=== PATIENT | female | born 1995 | race Caucasian/White ===

== ENCOUNTER 2020-02-15 14:15 | Day surgery (SDC) | payer SELFPAY ==
[2020-02-15 14:49] VITALS: BP 120/70; TEMP 98.3; BMI 26.9
[2020-02-15] MEDS ORDERED: hydrALAZINE 20 MG/ML VIAL SLOW IVP PRN (14:51)
--- NOTE | 2020-02-15 15:00 | PDOC.FPROB ---
FMR OB H&P: HPI - History of Present Illness Chief Complaint: Decreased FM, cramping Indentification: 24yo G1 at 33.6wks History of Present Illness: 24yo G1 at 33.6wks presents for decreased FM and cramping. Cramping has been intermittent for last 2 days, some irregular contractions last night. She has tried kick counts and drinking something sweet prior to coming in for the decreased movement. Denies VB/discharge, LOF, dysuria, fever. Now endorses FM. Reports before the cramping she had intercourse. Primary Care Physician: Dr Lacey FMR OB H&P: Current - Care : 1 Para: 0 Gestational age: 33.6wks Course/Complications: Likely Chlamydia positive (tx'ed with Azithro) - OB Labs Blood type: B RH: positive Antibody Screen: negative HIV: negative RPR: negative HepBsAg: negative Rubella: immune - First Trimester Ultrasound First trimester: Sickle Cell neg FMR OB H&P: History - Past Medical History PMH: Endometriosis - Surgical History Sx History: Exploratory laparotomy - Social History Social History: Denies Tobacco, alcohol and drug use. - Family History Family History: Noncontributory FMR OB H&P: Medications - Current Home Medications: Medication Instructions Recorded Confirmed Type Pnv No.95/Ferrous Fum/Folic AC 1 tab PO DAILY 02/15/20 02/15/20 History [ Tablet] Allergies/Adverse Reactions: Allergies Allergy/AdvReac Type Severity Reaction Status Date / Time Latex, Natural Rubber Allergy Verified 02/15/20 14:44 FMR OB H&P: ROS - Review of Systems General: denies: fever/chills, fatigue Eyes: denies: eye pain, vision changes, double vision ENT: denies: nasal congestion, sore throat Cardiovascular: denies: chest pain, edema Respiratory: denies: cough, congestion, shortness of breath Integumentary: denies: itching, rash FMR OB H&P: Vital Signs - Maternal Vital signs: Vital Signs - First Documented Temp Pulse Resp BP 98.3 F 80 18 120/70 02/15/20 14:31 02/15/20 14:31 02/15/20 14:31 02/15/20 14:31 - Heart Tones Baseline: 130 Variability: moderate Acceleration: present Deceleration: absent Category: category 1 [place] contractions every: None FMR OB H&P: Physical Exam - Physical Exam General: NAD, awake, alert and oriented HEENT: normocephalic and atraumatic, conjunctiva clear, no scleral icterus, grossly normal hearing Neck: supple, trachea midline Heart: RRR, no murmurs/rubs/gallops, no edema General: CTAB, no respiratory distress, good air movement, no rales/rhonchi, no wheezing, no retractions Abdomen: soft, gravid, non-tender Musculoskeletal: pulses present, no misalignment/asymmetry, no atrophy Neurological: no focal deficit Skin: no rash, good tugor Lymphatic: no unusual bruising or bleeding Psychiatric: intact recent and remote memory, good judgement and insight, normal mood and affect FMR OB H&P: A/P Disposition: 24yo G1 at 33.6wks Decreased FM - Now feeling movement. NST reactive and BPP 8/8. Not devaughn. Has follow up with Dr Lacey on 02/17, we let him know she was here. Discussion: Date/Time: 02/15/20 9140 This H&P was discussed with Dr. Sesay who agrees with the above documentation and plan. Addendum - Attending - Attending Attestation Date/Time: 02/15/20 9760 I personally evaluated the patient and discussed the management with Dr. Marrufo. I agree with the History, Examination, Assessment and Plan documented above.
--- NOTE | 2020-02-15 16:35 | ULT ---
NONSTRESS BIOPHYSICAL PROFILE: HISTORY: Decreased movement Comparison: None TECHNIQUE: Nonstress biophysical profile was performed FINDINGS: Single intrauterine gestation heart tones: 173 bpm position: Vertex Placenta: Maternal left Cervix is not appreciated Amniotic fluid index: 10.3 cm Nonstress biophysical profile: tone 2 breathing 2 movements 2 Amniotic fluid 2 Total score 8 out of 8 biometry: BPD 8.19 cm 32 weeks 6 days Head circumference 29.99 cm 33 weeks 2 days Abdominal circumference 28.90 cm, 32 weeks 6 days Femur length 6.29 cm, 32 weeks 4 days Average age by sonography is 32 weeks 5 days. Estimated weight is 2061 g +/- 3 105 g IMPRESSION: 1. Single living gestation with heart tones. 2. Average age by sonography is 32 weeks 5 days. Estimated weight is 2061 g +/- 5 g 3. Nonstress biophysical profile score is 8 out of 8 Transcribed Date/Time: 02/15/2020 4:54 PM
== END 2020-02-15 16:00 | disposition home health service (06) ==
LOC: L&D/OP 14:15
PROVIDERS: ATTEND Obstetrics & Gynecology
DX: O36.8130 Decreased fetal movements, third trimester, not applicable or unspecified (principal); O99.891 Other specified diseases and conditions complicating pregnancy; R10.9 Unspecified abdominal pain; Z3A.33 33 weeks gestation of pregnancy; Z91.040 Latex allergy status; Z91.048 Other nonmedicinal substance allergy status
CPT/HCPCS: 59025; 76819; 99282

== ENCOUNTER 2020-03-22 08:42 | Inpatient (IN) | payer OTHER ==
[2020-03-22] MEDS: Lactated Ringer's 1,000 ML IV SCH ×2 (09:00→09:59)
[2020-03-22] MEDS ORDERED: Lidocaine 1% (PF) 30 ML VIAL SC PRN (09:13)
[2020-03-22] MEDS ORDERED: Meperidine HCl/PF 25 MG/ML VIAL IM/IV PRN (09:13)
[2020-03-22] MEDS ORDERED: hydrALAZINE 20 MG/ML VIAL SLOW IVP PRN ×2 (09:13→14:56)
[2020-03-22] MEDS ORDERED: NS w/ Oxytocin 30 units 500 ML IV PRN (09:13)
[2020-03-22] MEDS ORDERED: Promethazine HCl 25 MG/ML VIAL IM PRN ×2 (09:13→10:32)
[2020-03-22] MEDS ORDERED: Ibuprofen 800 MG TAB PO PRN (09:13)
[2020-03-22] MEDS ORDERED: Butorphanol Tartrate 1 MG/ML VIAL SLOW IVP PRN (09:13)
[2020-03-22] MEDS ORDERED: HYDROcodone/Acetaminophen 5/325 mg Tablet PO PRN ×4 (09:13→14:56)
[2020-03-22] MEDS ORDERED: Ondansetron PF 4 MG/2 ML Vial IVP PRN ×3 (09:13→14:56)
[2020-03-22] MEDS ORDERED: Lactated Ringer's 1,000 ML IV SCH (09:15)
[2020-03-22 09:25] VITALS: BMI 27.8
[2020-03-22] MEDS ORDERED: Fentanyl 4 mcg/Bup 0.1% Cadd 100 ML ONE (09:29)
[2020-03-22 09:34] LABS: Hemoglobin 11.4 g/dL (12.0-16.0); Mean Corpuscular HGB CONC 32.9 g/dL (32.0-36.0); Mean Corpuscular Hemoglobin 28.8 pg (27.0-31.0); Mean Corpuscular Volume 87.4 fL (78.0-98.0); Mean Platelet Volume 8.8 fL (7.4-10.4); Platelet Count 273 thou/uL (130-400); RBC Distribution Width 12.9 % (11.5-14.5); Red Blood Cell (RBC) Count 3.95 mill/uL (4.20-5.40); White Blood Cell (WBC) Count 14.3 thou/uL (4.8-10.8)
[2020-03-22 10:15] LABS: Syphilis Antibody Nonreactive (Nonreactive); Syphilis Antibody Index 0.03 S/CO (<1.00 Non-Reactive)
[2020-03-22 10:16] LABS: HBSAg Index 0.21 S/CO (0-0.99); Hep B Surf Ag Non-Reactive S/CO (NonReactive)
[2020-03-22] MEDS ORDERED: Naloxone HCl 0.4 mg/ml Vial IVP PRN ×2 (10:32)
[2020-03-22] MEDS ORDERED: Lactated Ringer's 500 ML IV PRN (10:32)
[2020-03-22] MEDS ORDERED: ePHEDrine 50 MG/ML VIAL SLOW IVP PRN (10:32)
[2020-03-22] MEDS ORDERED: diphenhydrAMINE 50 MG/ML VIAL IVP PRN (10:32)
[2020-03-22] MEDS ORDERED: Acetaminophen 325 MG TAB PO PRN ×2 (10:32→14:57)
[2020-03-22] MEDS ORDERED: Communication Order-Pharmacy FS SCH (10:45)
[2020-03-22] MEDS ORDERED: Fentanyl 4 mcg/Bupivacaine 0.1% Cassette 100 ML EPIDURAL SCH (10:45)
[2020-03-22] MEDS ORDERED: Lidocaine 2% PF 5 ML VIAL ONE (12:38)
[2020-03-22] MEDS ORDERED: Bupivacaine HCl 0.25%/Epi 0.0005/PF 10 ML VIAL FS ONE (12:38)
[2020-03-22 13:14] LABS: SARS-CoV-2 MS2 Positive; SARS-CoV-2 N Gene Negative; SARS-CoV-2 S Gene Negative; SARS-CoV-2 by NAA Not Detected (NotDetected); SARS-CoV-2 orf1ab Negative
[2020-03-22] MEDS ORDERED: Misoprostol 200 MCG TAB VAG PRN (14:56)
[2020-03-22] MEDS ORDERED: Preparation H Ointment 28 GM TUBE PR PRN (14:56)
[2020-03-22] MEDS ORDERED: Benzocaine-Menthol 82.5 ML CAN TOP PRN (14:56)
[2020-03-22] MEDS ORDERED: Adacel (T-DAP) 0.5 ML SYRINGE IM ONE (14:56)
[2020-03-22] MEDS ORDERED: Milk Of Magnesia 30 ML UDCUP PO PRN (14:56)
[2020-03-22] MEDS ORDERED: Lanolin Ointment 7 GM TUBE TOP PRN (14:56)
[2020-03-22] MEDS ORDERED: Bisacodyl 10 MG SUPP PR PRN (14:56)
[2020-03-22] MEDS ORDERED: Zolpidem Tartrate 5 MG TAB PO PRN (14:56)
[2020-03-22] MEDS ORDERED: diphenhydrAMINE 25 MG CAP PO PRN (14:56)
[2020-03-22] MEDS ORDERED: NS / Oxytocin 40 units/1000ml 1,000 ML IV SCH (15:00)
[2020-03-22] MEDS: Ferrous Sulfate 325 MG TAB PO SCH (17:12)
[2020-03-22] MEDS: Docusate Calcium (SURFAK) 240 MG CAP PO SCH (20:11)
[2020-03-22] MEDS: Ibuprofen 800 MG TAB PO SCH (20:12)
[2020-03-23] MEDS: Ibuprofen 800 MG TAB PO SCH ×3 (05:03→21:54)
[2020-03-23] MEDS: Ferrous Sulfate 325 MG TAB PO SCH ×2 (08:16→16:20)
[2020-03-23] MEDS: Prenatal Vitamin 1 TAB PO SCH (08:16)
[2020-03-23] MEDS: Docusate Calcium (SURFAK) 240 MG CAP PO SCH ×2 (08:16→21:53)
[2020-03-23 20:16] VITALS: TEMP 97.8
[2020-03-24] MEDS: Ibuprofen 800 MG TAB PO SCH (05:16)
[2020-03-24 08:06] VITALS: BP 97/54
[2020-03-24] MEDS: Prenatal Vitamin 1 TAB PO SCH (09:06)
[2020-03-24] MEDS: Docusate Calcium (SURFAK) 240 MG CAP PO SCH (09:07)
[2020-03-24] MEDS: Ferrous Sulfate 325 MG TAB PO SCH (09:07)
== END 2020-03-24 11:21 | disposition home or self-care (01) | DRG 807 ==
LOC: L&D/OP 08:42 → L&D 15:06 → 3SW 17:26
PROVIDERS: ADMIT Obstetrics & Gynecology; ATTEND Obstetrics & Gynecology
PROC: 10E0XZZ Delivery of Products of Conception, External Approach (ICD-10-PCS; principal; 2020-03-22)
DX: O70.0 First degree perineal laceration during delivery (principal); Z37.0 Single live birth; Z3A.39 39 weeks gestation of pregnancy
CPT/HCPCS: 36415; 51702; 85027; 86780; 86850; 86900; 86901; 87340; 87635; 90715; 99285; J2001; J2405; J2590; J7030; U0003

== ENCOUNTER 2021-05-11 16:24 | Emergency (ER) | payer MEDICAID, OTHER ==
[2021-05-11] MEDS ORDERED: Dexamethasone 10 MG/ML VIAL ONE (18:51)
[2021-05-12 01:00] LABS: SARS-CoV-2 PCR by NAA Not Detected (NotDetected)
== END 2021-05-11 19:00 | disposition home or self-care (01) ==
LOC: ERS 16:24
DX: R05.9 Cough, unspecified (principal); Z20.822 Contact with and (suspected) exposure to COVID-19; Z79.899 Other long term (current) drug therapy; F17.210 Nicotine dependence, cigarettes, uncomplicated; F17.290 Nicotine dependence, other tobacco product, uncomplicated
CPT/HCPCS: 87081; 87430; 99283; J1100; U0003; U0005

== ENCOUNTER 2023-04-05 11:20 | Emergency (ER) | payer OTHER, SELFPAY ==
[2023-04-05] MEDS ORDERED: Ketorolac Tromethamine 30 MG (1 mL) VIAL ONE (12:12)
[2023-04-05 12:20] LABS: #Eosinphils 0.6 thou/uL (0.0-0.7); #Monocytes 0.4 thou/uL (0.11-0.59); #Neutrophils 4.4 thou/uL (1.40-6.50); %Basophils 0.5 % (0.0-1.0); %Eosinophils 8.2 % (0.0-10.0); %Lymphocytes 26.9 % (21.0-51.0); %Monocytes 5.5 % (0.0-10.0); %Neutrophils 58.8 % (42.0-75.0); Hematocrit 40.9 % (36.0-47.0); Hemoglobin 13.7 g/dL (12.0-16.0); Mean Corpuscular HGB CONC 33.5 g/dL (32.0-36.0); Mean Corpuscular Hemoglobin 31.3 pg (27.0-31.0); Mean Corpuscular Volume 93.4 fl (78.0-98.0); Mean Platelet Volume 9.3 fL (7.4-10.4); Platelet Count 320 10x3/uL (130-400); RBC Distribution Width 12.2 % (11.5-14.5); Red Blood Cell (RBC) Count 4.38 mill/uL (4.20-5.40); White Blood Cell (WBC) Count 7.5 10x3/uL (4.8-10.8)
[2023-04-05 12:35] LABS: BHCG - Serum Negative (NEGATIVE); Pregs Control Background? CLEAR/WHITE (CLR/WHITE); Pregs Control Bar Appear? YES (CONTROL BAR)
[2023-04-05 12:45] LABS: ALT (SGPT) 10 U/L (8-55); AST (SGOT) 10 U/L (5-34); Albumin 4.2 g/dL (3.5-5.0); Alkaline Phosphatase 59 U/L (40-110); Anion Gap 9 mmol/L (10-20); BUN (Urea Nitrogen) 10 mg/dL (7.0-18.7); Bilirubin, Total 0.4 mg/dL (0.2-1.2); Calc. Creatinine Clearance 0 mL/min (70-130); Calcium 9.1 mg/dL (7.8-10.44); Carbon Dioxide 28 mmol/L (22-29); Chloride 106 mmol/L (98-107); Estimated GFR 111; Globulin 2.9 g/dL (2.4-3.5); Glucose 90 mg/dL (70-105); Potassium 4.6 mmol/L (3.5-5.1); Protein, Total 7.1 g/dL (6.0-8.3); Sodium 138 mmol/L (136-145)
== END 2023-04-05 13:35 | disposition home or self-care (01) ==
LOC: ERS 11:20
DX: R10.2 Pelvic and perineal pain (principal); F17.290 Nicotine dependence, other tobacco product, uncomplicated
CPT/HCPCS: 36415; 76856; 80053; 84703; 85025; 96372; J1885